=== PATIENT | male | born 1955 | race Caucasian/White ===

== ENCOUNTER 2024-11-20 13:01 | Emergency (ER) | payer MEDICARE ==
[2024-11-20 13:15] VITALS: TEMP 97.2
--- NOTE | 2024-11-20 13:24 | ERPHSYRPT ---
- History of Present Illness Time Seen by Provider: 11/20/24 13:15 Source: patient Exam Limitations: no limitations Patient Subjective Stated Complaint: pt here for increase sob today, he states he was seen x3 at clinic and was placed on antiboitic and steriods. pt feels he is not getting better, denies fever Triage Nursing Assessment: pt alert, walked in, in resp distress, resp labored chest,chest with wheezes and diminished in bases, no edema noted, 02 placed at 2 lnc Physician History: 69yo m pmhx htn, smoker, presents for sob. Pt reports he has been sob for the past several months, reports he has been seen at [facility] several times in the past month for similar sx. Pt reports his sob has been worsening for that past several days. Pt denies any fevers at home, reports some chest congestion w/ non-productive cough. Pt denies any chest pain, abdominal pain, n/v/d. Pt reports the only medications he takes are for his bp and low sodium. Pt reports he smokes 1-2ppd. Timing/Duration: day(s) (3) Activities at Onset: none Severity of Dyspnea-Max: moderate Severity of Dyspnea-Current: moderate Possible Cause: frequent episodes Modifying Factors: Improves With: nothing Associated Symptoms: constant, cough, No chest pain/discomfort, No edema, No hemoptysis Allergies/Adverse Reactions: No Known Drug Allergies Allergy (Unverified 11/20/24 13:03) Hx Influenza Vaccination/Date Given: No Hx Pneumococcal Vaccination/Date Given: No Immunizations Up to Date: Yes Travel Risk - International Travel Have you traveled outside of the country in past 3 weeks: No - Emerging Infectious Disease Are you exhibiting symptoms associated with any current EIDs: Yes Symptoms: Cough: New Onset, Shortness of Breath - Review of Systems Constitutional: No Symptoms Respiratory: Cough, Dyspnea, Wheezing, No Stridor Cardiac: No Chest Pain, No Edema, No Palpitations, No Syncope Abdominal/Gastrointestinal: No Symptoms - Past Medical History Pertinent Past Medical History: Yes Cardiac History: Hypertension Respiratory History: COPD, Emphysema - Past Surgical History Past Surgical History: No - Social History Smoking Status: Current every day smoker Exposure to second hand smoke: Yes Drug Use: none - Social Determinants of Health Will the patient participate in the screening: Declined to provide - Nursing Vital Signs Nursing Vital Signs: Initial Vital Signs Respiratory Rate 23 01/18/25 13:07 Blood Pressure 179/96 11/20/24 13:07 O2 Sat by Pulse Oximetry 99 11/20/24 13:07 Pain Scale Pain Intensity 0 - Physical Exam General Appearance: no apparent distress, alert Respiratory Exam: respiratory distress, airway intact, diminished breath sounds, accessory muscle use (leaning forward on exam to assist respirations), rhonchi (diffuse), wheezing (bilaterally), No chest tenderness, No crackles/rales Cardiovascular/Chest Exam: normal heart sounds, normal peripheral pulses, tachycardia Abdominal/Gastrointestinal Exam: soft, No tenderness, No distention SpO2: 98 - Course EKG Interpreted by Me: RATE (102), Sinus Tach, NORMAL INTERVALS, Non-specific ST Changes (not suggestive of acute ischemia), Other Ordered Tests: Active Orders 24 hr Category Date Time Status EKG-ER Only STAT Care 11/20/24 13:19 Active IV Insertion STAT Care 11/20/24 13:19 Active Oxygen-ED Only Nasal Cannula 2 lpm Care 11/20/24 13:19 Active CHEST WITH CONTRAST [CT] Stat Exams 11/20/24 13:22 Completed ARTERIAL BLOOD GASES Stat Lab 11/20/24 13:38 Completed BMP Stat Lab 11/20/24 16:25 Completed CBC W DIFF Stat Lab 11/20/24 13:00 Completed CMP Stat Lab 11/20/24 13:00 Completed NT PRO BNPII Stat Lab 11/20/24 13:00 Completed PROCALCITONIN Stat Lab 11/20/24 13:00 Completed TROPONIN Q4H Lab 11/20/24 13:00 Completed TROPONIN Q4H Lab 11/20/24 16:25 Completed TROPONIN Q4H Lab 11/20/24 21:30 Ordered Respiratory Therapy Assessment DAILY RT 11/20/24 13:47 Active Medication Summary Generic Name Dose Route Start Last Admin Trade Name Freq PRN Reason Stop Dose Admin Sodium Chloride 1,000 mls @ 100 mls/hr 11/20/24 17:15 Sodium Chloride 0.9% 1000 Ml IV 12/20/24 17:14 .Q10H TAHIR Discontinued Medications Generic Name Dose Route Start Last Admin Trade Name Freq PRN Reason Stop Dose Admin Albuterol/Ipratropium 3 ml 11/20/24 13:19 11/20/24 13:30 Ipratropium/Albuterol Sulfate 3 Ml Ampul.Neb IH 11/20/24 13:20 3 ml STAT ONE Administration Albuterol/Ipratropium Confirm 11/20/24 13:28 Ipratropium/Albuterol Sulfate 3 Ml Ampul.Neb Administered 11/20/24 13:29 Dose 3 ml IH .STK-MED ONE Methylprednisolone Sodium 0 mg 11/20/24 13:19 11/20/24 13:36 Succinate 125 mg/ Sterile IV 11/20/24 13:20 125 mg Water 2 ml STAT ONE Administration Sodium Chloride 1,000 mls @ 999 mls/hr 11/20/24 13:19 11/20/24 14:38 Sodium Chloride 0.9% 1000 Ml IV 11/20/24 14:19 Infused .Q1H1M STA Infusion Sodium Chloride Confirm 11/20/24 13:31 Sodium Chloride 0.9% 1000 Ml Administered 11/20/24 13:32 Dose 1,000 mls @ ud .ROUTE .STK-MED ONE Methylprednisolone Sodium Succinate Confirm 11/20/24 13:31 Methylprednis Sod Succ 125 Mg/2 Ml Vial Administered 11/20/24 13:32 Dose 125 mg .ROUTE .STK-MED ONE Sterile Water Confirm 11/20/24 13:31 Water For Injection,Sterile 10 Ml Vial Administered 11/20/24 13:32 Dose 10 ml IJ .STK-MED ONE Lab/Rad Data: Laboratory Result Diagrams 11/20/24 13:00 11/20/24 16:25 Laboratory Results 11/20/24 11/20/24 11/20/24 Range/Units 16:25 16:25 13:40 WBC (4.23-9.07) x10^3/uL RBC (4.63-6.08) x10^6/uL Hgb (13.7-17.5) g/dL Hct (40.1-51.0) % MCV (79.0-92.2) fL MCH (25.7-32.2) pg MCHC (32.3-36.5) g/dL RDW (11.6-14.4) % Plt Count (163-337) x10^3/uL MPV (9.4-12.4) fL Gran % (34.0-67.9) % Immature Gran % (Auto) (0.001-0.429) % Nucleat RBC Rel Count (0.00-0.2) % Eos # (Auto) (0.04-0.54) x10^3/uL Immature Gran # (Auto) (0.001-0.031) x10^3u/L Absolute Lymphs (auto) (1.32-3.57) x10^3/uL Absolute Monos (auto) (0.30-0.82) x10^3/uL Absolute Nucleated RBC (0.00-0.012) x10^3u/L Lymphocytes % (21.8-53.1) % Monocytes % (5.3-12.2) % Eosinophils % (0.8-7.0) % Basophils % (0.2-1.2) % Absolute Granulocytes (1.78-5.38) x10^3/uL Basophils # (0.01-0.08) x10^3/uL Puncture Site pCO2 (35-45) mmHg pO2 (75-100) mmHg Base Excess (-2.0-2.0) O2 Saturation (94-100) g/dF ABG pH (7.35-7.45) ABG HCO3 (22-28) ABG O2 Sat (Measured) (95-100) % Mike Test A-a Gradient a/A Ratio Hemoglobin Carboxyhemoglobin (0.0-6.9) % THgb Methemoglobin (1.4-1.5) % Temperature C POC O2 Flow Rate % Sodium 115 L* (135-145) mmol/L Potassium 4.2 (3.5-5.1) mmol/L Chloride 85 L (98-107) mmol/L Carbon Dioxide 26 (22-30) mmol/L Anion Gap 8.9 (5-15) MEQ/L BUN 27 H (9-20) mg/dL Creatinine 0.51 L (0.66-1.25) mg/dL Estimated GFR 110.4 ML/MIN Glucose 123 H (74-106) mg/dL Calcium 8.5 (8.4-10.2) mg/dL Total Bilirubin (0.2-1.3) mg/dL AST (17-59) U/L ALT (0-50) U/L Alkaline Phosphatase (38-126) U/L Troponin I < 0.012 (0.000-0.033) ng/mL NT-Pro-B Natriuret Pep (<300) pg/mL Serum Total Protein (6.3-8.2) g/dL Albumin (3.5-5.0) g/dL Procalcitonin (0.030-0.080) ng/mL Influenza Type A Ag NEGATIVE (NEGATIVE) Influenza Type B Ag NEGATIVE (NEGATIVE) RSV (PCR) NEGATIVE (NEGATIVE) SARS-CoV-2 (PCR) NEGATIVE (NEGATIVE) 11/20/24 11/20/24 11/20/24 Range/Units 13:38 13:00 13:00 WBC (4.23-9.07) x10^3/uL RBC (4.63-6.08) x10^6/uL Hgb (13.7-17.5) g/dL Hct (40.1-51.0) % MCV (79.0-92.2) fL MCH (25.7-32.2) pg MCHC (32.3-36.5) g/dL RDW (11.6-14.4) % Plt Count (163-337) x10^3/uL MPV (9.4-12.4) fL Gran % (34.0-67.9) % Immature Gran % (Auto) (0.001-0.429) % Nucleat RBC Rel Count (0.00-0.2) % Eos # (Auto) (0.04-0.54) x10^3/uL Immature Gran # (Auto) (0.001-0.031) x10^3u/L Absolute Lymphs (auto) (1.32-3.57) x10^3/uL Absolute Monos (auto) (0.30-0.82) x10^3/uL Absolute Nucleated RBC (0.00-0.012) x10^3u/L Lymphocytes % (21.8-53.1) % Monocytes % (5.3-12.2) % Eosinophils % (0.8-7.0) % Basophils % (0.2-1.2) % Absolute Granulocytes (1.78-5.38) x10^3/uL Basophils # (0.01-0.08) x10^3/uL Puncture Site RIGHT BRACHIAL pCO2 45 (35-45) mmHg pO2 116 H (75-100) mmHg Base Excess 5.6 H (-2.0-2.0) O2 Saturation 96.1 (94-100) g/dF ABG pH 7.44 (7.35-7.45) ABG HCO3 30.6 H* (22-28) ABG O2 Sat (Measured) 99.2 (95-100) % Mike Test NOT APPLICABLE A-a Gradient 27 a/A Ratio 0.81 Hemoglobin 13.2 Carboxyhemoglobin 2.4 (0.0-6.9) % THgb Methemoglobin 0.7 L (1.4-1.5) % Temperature 37.0 C POC O2 Flow Rate 28 % Sodium 116 L* (135-145) mmol/L Potassium 3.7 3.9 (3.5-5.1) mmol/L Chloride 80 L (98-107) mmol/L Carbon Dioxide 29 (22-30) mmol/L Anion Gap 10.8 (5-15) MEQ/L BUN 37 H (9-20) mg/dL Creatinine 0.57 L (0.66-1.25) mg/dL Estimated GFR 106.8 ML/MIN Glucose 158 H (74-106) mg/dL Calcium 8.7 (8.4-10.2) mg/dL Total Bilirubin 0.60 (0.2-1.3) mg/dL AST 56 (17-59) U/L ALT 41 (0-50) U/L Alkaline Phosphatase 118 (38-126) U/L Troponin I < 0.012 (0.000-0.033) ng/mL NT-Pro-B Natriuret Pep 132 (<300) pg/mL Serum Total Protein 6.6 (6.3-8.2) g/dL Albumin 4.2 (3.5-5.0) g/dL Procalcitonin 0.069 (0.030-0.080) ng/mL Influenza Type A Ag (NEGATIVE) Influenza Type B Ag (NEGATIVE) RSV (PCR) (NEGATIVE) SARS-CoV-2 (PCR) (NEGATIVE) 11/20/24 Range/Units 13:00 WBC 10.1 H (4.23-9.07) x10^3/uL RBC 3.96 L (4.63-6.08) x10^6/uL Hgb 12.9 L (13.7-17.5) g/dL Hct 35.0 L (40.1-51.0) % MCV 88.4 (79.0-92.2) fL MCH 32.6 H (25.7-32.2) pg MCHC 36.9 H (32.3-36.5) g/dL RDW 12.2 (11.6-14.4) % Plt Count 358 H (163-337) x10^3/uL MPV 8.8 L (9.4-12.4) fL Gran % 83.9 H (34.0-67.9) % Immature Gran % (Auto) 0.4 (0.001-0.429) % Nucleat RBC Rel Count 0.0 (0.00-0.2) % Eos # (Auto) 0.02 L (0.04-0.54) x10^3/uL Immature Gran # (Auto) 0.04 H (0.001-0.031) x10^3u/L Absolute Lymphs (auto) 0.80 L (1.32-3.57) x10^3/uL Absolute Monos (auto) 0.75 (0.30-0.82) x10^3/uL Absolute Nucleated RBC 0.00 (0.00-0.012) x10^3u/L Lymphocytes % 7.9 L (21.8-53.1) % Monocytes % 7.4 (5.3-12.2) % Eosinophils % 0.2 L (0.8-7.0) % Basophils % 0.2 (0.2-1.2) % Absolute Granulocytes 8.50 H (1.78-5.38) x10^3/uL Basophils # 0.02 (0.01-0.08) x10^3/uL Puncture Site pCO2 (35-45) mmHg pO2 (75-100) mmHg Base Excess (-2.0-2.0) O2 Saturation (94-100) g/dF ABG pH (7.35-7.45) ABG HCO3 (22-28) ABG O2 Sat (Measured) (95-100) % Mike Test A-a Gradient a/A Ratio Hemoglobin Carboxyhemoglobin (0.0-6.9) % THgb Methemoglobin (1.4-1.5) % Temperature C POC O2 Flow Rate % Sodium (135-145) mmol/L Potassium (3.5-5.1) mmol/L Chloride (98-107) mmol/L Carbon Dioxide (22-30) mmol/L Anion Gap (5-15) MEQ/L BUN (9-20) mg/dL Creatinine (0.66-1.25) mg/dL Estimated GFR ML/MIN Glucose (74-106) mg/dL Calcium (8.4-10.2) mg/dL Total Bilirubin (0.2-1.3) mg/dL AST (17-59) U/L ALT (0-50) U/L Alkaline Phosphatase (38-126) U/L Troponin I (0.000-0.033) ng/mL NT-Pro-B Natriuret Pep (<300) pg/mL Serum Total Protein (6.3-8.2) g/dL Albumin (3.5-5.0) g/dL Procalcitonin (0.030-0.080) ng/mL Influenza Type A Ag (NEGATIVE) Influenza Type B Ag (NEGATIVE) RSV (PCR) (NEGATIVE) SARS-CoV-2 (PCR) (NEGATIVE) - Progress Progress: re-examined Air Movement: fair Progress Note: 11/20/24 17:08 initial Na 116, repeat after 1L NS bolus 115 - will continue NS at 100ml/h 11/20/24 17:10 CTA chest showe: 1. No CT evidence of pulmonary embolism. 2. Bilateral apical reticulations. 3. Right lower lobar small calcific nodule measuring 3.5 mm. 4. Diffuse bilateral upper lobar centrilobular emphysematous changes. 5. Middle lobe atelectatic band. 6. Diffuse osteopenic texture of bones. 7. Compression fracture of D7 vertebral body with moderate to marked loss of height and minimal insignificant posterior retropulsion. Suspected fissure of the upper cortical surface of its spine. 8. L1 and L2 compression fractures of upper vertebral endplates are alse seen with mild loss of height and mild retropulsion of superoposterior angles. 9. Enlarged thyroid gland with bilateral hypodense thyroid nodules. Blood Culture(s) Obtained: No Antibiotics given: No - Departure Departure Disposition: Observation Clinical Impression: Shortness of breath, Hyponatremia Condition: Stable Critical Care Time: No Referrals: DOCTOR,NO FAMILY [Primary Care Provider] - Follow up/PCP as directed
[2024-11-20 13:28] LABS: BASOPHIL % 0.2 % (0.2-1.2); Basophil (Absolute #) 0.02 x10^3/uL (0.01-0.08); Eosinophil % 0.2 % (0.8-7.0); Eosinophil (Absolute #) 0.02 x10^3/uL (0.04-0.54); Hemoglobin 12.9 g/dL (13.7-17.5); IMMATURE GRAN # 0.04 x10^3u/L (0.001-0.031); IMMATURE GRAN % 0.4 % (0.001-0.429); Lymphocytes % 7.9 % (21.8-53.1); Mean Cell Volume 88.4 fL (79.0-92.2); Mean Corpuscular Hemoglobin 32.6 pg (25.7-32.2); Mean Corpuscular Hgb Concent. 36.9 g/dL (32.3-36.5); Mean Platelet Volume 8.8 fL (9.4-12.4); Monocyte (Absolute #) 0.75 x10^3/uL (0.30-0.82); Monocytes % 7.4 % (5.3-12.2); Neutrophil % 83.9 % (34.0-67.9); Platelet Count 358 x10^3/uL (163-337); Red Blood Count 3.96 x10^6/uL (4.63-6.08); Red Cell Distribution Width 12.2 % (11.6-14.4); White Blood Count 10.1 x10^3/uL (4.23-9.07)
[2024-11-20] MEDS ORDERED: DUONEB 0.5-3 MG/3 ml Neb IH ONE (13:28)
[2024-11-20] MEDS: DUONEB 0.5-3 MG/3 ml Neb IH ONE (13:30)
[2024-11-20] MEDS ORDERED: Sodium Chloride 0.9% 1000 ML 1,000 ML ONE ×2 (13:31→17:19)
[2024-11-20] MEDS ORDERED: Sterile H2O 10 ml IJ ONE (13:31)
[2024-11-20] MEDS ORDERED: solu-MEDROL ONE (13:31)
[2024-11-20] MEDS: solu-MEDROL 125 MG, Sterile H2O 10 ml 2 ML IV ONE (13:36)
[2024-11-20] MEDS: Sodium Chloride 0.9% 1000 ML 1,000 ML IV STA (13:36)
[2024-11-20 13:43] LABS: A-aADO2 27; ABG HEMOGLOBIN 13.2; ABG POTASSIUM 3.7 (3.5-5.1); ABG SITE RIGHT BRACHIAL; ARTERIAL BLD GAS O2 SATURATION 99.2 % (95-100); ARTERIAL BLOOD GAS BASE EXCESS 5.6 (-2.0-2.0); ARTERIAL BLOOD GAS FIO2 28 %; ARTERIAL BLOOD GAS PCO2 45 mmHg (35-45); ARTERIAL BLOOD GAS PO2 116 mmHg (75-100); ARTERIAL BLOOD GAS pH 7.44 (7.35-7.45); CARBOXYHEMOGLOBIN 2.4 % THgb (0.0-6.9); HCO3- 30.6 (22-28); HGB O2 SAT 96.1 g/dF (94-100); Methhemoglobin 0.7 % (1.4-1.5); paO2 pAO1 0.81
[2024-11-20 14:01] LABS: ALBUMIN 4.2 g/dL (3.5-5.0); ANION GAP 10.8 MEQ/L (5-15); BILIRUBIN,TOTAL 0.6 mg/dL (0.2-1.3); Calcium 8.7 mg/dL (8.4-10.2); Creatinine 1 0.57 mg/dL (0.66-1.25); EST GLOMERULAR FILTRATION RATE 106.8 ML/MIN; PROCALCITONIN 0.069 ng/mL (0.030-0.080); Potassium 3.9 mmol/L (3.5-5.1); Total Protein 6.6 g/dL (6.3-8.2)
[2024-11-20 14:23] LABS: INFLUENZA A NEGATIVE (NEGATIVE); INFLUENZA B NEGATIVE (NEGATIVE); RESPIRATORY SYNCTIAL VIRUS NEGATIVE (NEGATIVE); SARS-CoV-2 Xpert Express NEGATIVE (NEGATIVE)
--- NOTE | 2024-11-20 16:25 | XRAY ---
CLINICAL HISTORY: PE r/o, sob tachy COMPARISON: None. TECHNIQUE: Contiguous 3.[address] images of the chest were acquired with the administration of intravenous contrast 100 cc Isovue 300. Coronal and sagittal reconstructions were obtained. One of the following dose reduction techniques were utilized for this exam: Automated exposure control, adjustment of the mA and/or kV according to patient size, and use of iterative reconstruction. FINDINGS: Lungs: Bilateral apical reticulations. Right lower lobar small calcific nodule measuring 3.5 mm. Diffuse bilateral upper lobar centrilobular emphysematous changes. Middle lobe atelectatic band. No ground-glass opacities or interstitial changes. No pleural effusion or pleural thickening. Mediastinum: Small subcarinal calcified lymph node. No mediastinal mass or abnormal lymphadenopathy. Hilar Structures: Normal size and configuration, no enlargement. Heart and Great Vessels: Normal heart size and configuration. No pericardial effusion. Normal caliber and course of the thoracic aorta and other great vessels. No significant atherosclerosis or aneurysm. Normal enhancement of the great vessels post-contrast. Pulmonary Arteries: No evidence of pulmonary embolism. Normal size and course of the pulmonary arteries. Esophagus: Normal course and caliber. No masses or dilatation. Bones: Diffuse osteopenic texture of bones. Mild thoracic degenerative changes are seen. Compression fracture of D7 vertebral body with moderate to marked loss of height and minimal insignificant posterior retropulsion. Suspected fissure of upper cortical surface of its spine. L1 and L2 compression fractures of upper vertebral endplates are alse seen with mild loss of height and mild retropulsion of superoposterior angles. Chest Wall: No masses or soft tissue abnormalities. Upper Abdomen: Splenic calcific foci Mild gastric and proximal duodenal mural thickening likely inflammatory in nature. Thyroid: Enlarged thyroid gland with bilateral hypodense thyroid nodules. IMPRESSION: 1. No CT evidence of pulmonary embolism. 2. Bilateral apical reticulations. 3. Right lower lobar small calcific nodule measuring 3.5 mm. 4. Diffuse bilateral upper lobar centrilobular emphysematous changes. 5. Middle lobe atelectatic band. 6. Diffuse osteopenic texture of bones. 7. Compression fracture of D7 vertebral body with moderate to marked loss of height and minimal insignificant posterior retropulsion. Suspected fissure of the upper cortical surface of its spine. 8. L1 and L2 compression fractures of upper vertebral endplates are alse seen with mild loss of height and mild retropulsion of superoposterior angles. 9. Enlarged thyroid gland with bilateral hypodense thyroid nodules. Electronically Signed by: Maggie Rust MD. (11/20/2024 16:20:52 EST)
[2024-11-20 16:48] LABS: ANION GAP 8.9 MEQ/L (5-15); Calcium 8.5 mg/dL (8.4-10.2); Creatinine 1 0.51 mg/dL (0.66-1.25); EST GLOMERULAR FILTRATION RATE 110.4 ML/MIN; Potassium 4.2 mmol/L (3.5-5.1)
[2024-11-20] MEDS: Sodium Chloride 0.9% 1000 ML 1,000 ML IV SCH (17:21)
[2024-11-20 19:10] VITALS: BP 159/94; PULSE 100; RESP 24; O2SAT 99
== END 2024-11-20 19:30 | disposition short-term general hospital (02) ==
LOC: ED 13:01
DX: R06.02 Shortness of breath (principal); E87.1 Hypo-osmolality and hyponatremia; R09.02 Hypoxemia; I10 Essential (primary) hypertension; Z79.899 Other long term (current) drug therapy; Z72.0 Tobacco use
CPT/HCPCS: 0241U; 36415; 36600; 71260; 80048; 80053; 82375; 82803; 83880; 84145; 84484; 85025; 93005; 94640; 96360; 96361; 96374; 99285; J2919; A9270-GY